=== PATIENT | female | born 2005 | race Caucasian/White ===

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

== ENCOUNTER → 2024-05-02 | Outpatient (CLI) | payer BC ==
[2006-05-15 17:43] VITALS: TEMP 98.6
== END ==
LOC: COL.RAD 14:14
DX: N83.8 Other noninflammatory disorders of ovary, fallopian tube and broad ligament (principal); N91.1 Secondary amenorrhea